=== PATIENT | female | born 1985 | race Caucasian/White ===

== ENCOUNTER 2023-07-25 15:05 | Emergency (ER) | payer MEDICAID, OTHER ==
[~2023-07-25] VITALS: Ht 170.2 cm; Wt 79.4 kg
[~2023-07-25 15:05] MED LIST: IBUP-2213 PO; [UNRECOGNIZED DRUG - OTHER] PO
[2023-07-25 15:15] VITALS: BP 116/68; PULSE 65; RESP 18; TEMP 97.8; O2SAT 98
[2023-07-25] MEDS ORDERED: IBUP-2213 PO (16:35)
== END 2023-07-25 16:46 | disposition home or self-care (01) ==
LOC: MED 15:05
DX: M79.672 Pain in left foot (principal); R03.0 Elevated blood-pressure reading, without diagnosis of hypertension; Z79.1 Long term (current) use of non-steroidal anti-inflammatories (NSAID); X58.XXXA Exposure to other specified factors, initial encounter; Y93.89 Activity, other specified; Y92.89 Other specified places as the place of occurrence of the external cause; Y99.8 Other external cause status
CPT/HCPCS: 73630; 99283